=== PATIENT | female | born 1955 ===

== ENCOUNTER 2020-04-07 13:48 | Inpatient (IN) | payer OTHER ==
[~2020-04-07] VITALS: Ht 162.6 cm; Wt 117.9 kg
[~2020-04-07 13:48] MED LIST: CILOSTAZOL100 MG PO; DILTIAZEM 24HR240 MG PO; FORTAMET500 MG PO; LIPIT PO; MICARDIS HCT 81 EAC1 PO; MULTIPLE VITAM1 EACH PO; PLAVIX75 MG PO
[2020-04-15] MEDS ORDERED: ATORVASTATIN CA10 MG (08:05)
[2020-04-15] MEDS ORDERED: FAMOTIDINE20 MG (08:05)
[2020-04-15] MEDS ORDERED: IRBESARTAN300 MG (08:06)
[2020-04-15] MEDS ORDERED: GABAPENTIN600 MG (08:06)
[2020-04-16] MEDS ORDERED: ELIQUIS2.5 MG PO (16:58)
[2020-04-16] MEDS ORDERED: CEFADROXIL500 MG PO (16:58)
[2020-04-16] MEDS ORDERED: PERCOCET 5-3251 EACH PO (16:58)
== END 2020-04-20 21:40 | DRG 469 ==
LOC: O/R 04-14 05:40 → SURG 04-14 05:40 → SURH 04-14 07:30 → SURG 04-14 14:35 → SURH 04-14 16:45 → MEDJ 04-17 13:20
PROVIDERS: ADMIT Orthopaedic Surgery; ATTEND Orthopaedic Surgery
PROC: 3E0F7SF Introduction of Other Gas into Respiratory Tract, Via Natural or Artificial Opening (ICD-10-PCS; 2020-04-14)
PROC: 0SRD0J9 Replacement of Left Knee Joint with Synthetic Substitute, Cemented, Open Approach (ICD-10-PCS; principal; 2020-04-14 16:45)
PROC: 8E0ZXY6 Isolation (ICD-10-PCS; 2020-04-17)
PROC: 4A033R1 Measurement of Arterial Saturation, Peripheral, Percutaneous Approach (ICD-10-PCS; 2020-04-17)
PROC: 4A12X4Z Monitoring of Cardiac Electrical Activity, External Approach (ICD-10-PCS; 2020-04-17)
DX: M17.12 Unilateral primary osteoarthritis, left knee (principal); U07.1 COVID-19; I21.4 Non-ST elevation (NSTEMI) myocardial infarction; Z68.41 Body mass index [BMI] 40.0-44.9, adult; Z95.5 Presence of coronary angioplasty implant and graft; I10 Essential (primary) hypertension; E11.9 Type 2 diabetes mellitus without complications; M79.7 Fibromyalgia; I25.10 Atherosclerotic heart disease of native coronary artery without angina pectoris; E66.8 Other obesity; Z71.3 Dietary counseling and surveillance